=== PATIENT | female | born 1990 | race African-American/Black ===

== ENCOUNTER 2019-03-29 21:54 | Emergency (ER) | payer MEDICAID, OTHER ==
[2019-03-30 00:57] LABS: ABO/RH TYPE 1 1
== END 2019-03-30 01:35 | disposition home or self-care (01) ==
LOC: FTE 03-30 01:35
DX: O20.9 Hemorrhage in early pregnancy, unspecified (principal); O26.892 Other specified pregnancy related conditions, second trimester; Z67.91 Unspecified blood type, Rh negative; Z3A.14 14 weeks gestation of pregnancy
CPT/HCPCS: 76801; 86900; 86901; 99284-25